=== PATIENT | female | born 1955 | race Caucasian/White ===

== ENCOUNTER 2017-06-13 19:46 | Emergency (ER) | payer OTHER ==
[~2017-06-13] VITALS: Ht 167.6 cm; Wt 70.9 kg
[~2017-06-13 19:46] MED LIST: HYDROCODON-ACE1 EAC7 PO; LORTAB 5-325 M1 EACH PO; PREDNISONE50 MG PO; ROBAXIN500 MG PO
[2017-06-13] MEDS ORDERED: PERCOCET 5/31 TABLET PO (23:20)
[2017-06-13] MEDS ORDERED: MOTRIN600 MG PO (23:20)
[2017-06-13] MEDS ORDERED: VALIUM5 MG PO (23:20)
[2017-06-13 23:58] VITALS: BP 120/73
== END 2017-06-13 23:59 | disposition home or self-care (01) ==
LOC: EME 19:46
DX: S39.012A Strain of muscle, fascia and tendon of lower back, initial encounter (principal); M62.830 Muscle spasm of back; X50.1XXA Overexertion from prolonged static or awkward postures, initial encounter; Y93.E8 Activity, other personal hygiene; Z87.39 Personal history of other diseases of the musculoskeletal system and connective tissue; Z88.2 Allergy status to sulfonamides; Z88.6 Allergy status to analgesic agent; Z88.1 Allergy status to other antibiotic agents
CPT/HCPCS: 72100; 99281; 99284; J1100; J2060; J3010

== ENCOUNTER → 2017-08-22 | Outpatient (CLI) | payer BC ==
[~2017-08-22] VITALS: Ht 167.6 cm; Wt 70.2 kg
[~2017-08-22] MED LIST changes: +ESTRACE42.5 GM VG; +MOTRIN600 MG PO; +PERCOCET 5/31 TABLET PO; +VALIUM5 MG PO
== END | disposition home or self-care (01) ==
LOC: AMB 10:28
PROC: 0DBK8ZX Excision of Ascending Colon, Via Natural or Artificial Opening Endoscopic, Diagnostic (ICD-10-PCS; principal; 2017-08-22)
DX: Z12.11 Encounter for screening for malignant neoplasm of colon (principal); D12.2 Benign neoplasm of ascending colon; Z80.0 Family history of malignant neoplasm of digestive organs; Z83.3 Family history of diabetes mellitus; Z88.2 Allergy status to sulfonamides; Z88.6 Allergy status to analgesic agent
CPT/HCPCS: 88305